=== PATIENT | male | born 1990 | race Caucasian/White ===

== ENCOUNTER 2017-11-21 08:50 | Inpatient (IN) | payer OTHER ==
[~2017-11-21] VITALS: Ht 180.3 cm; Wt 102.3 kg
[~2017-11-21 08:50] MED LIST: IBUP-1986 PO
[2017-11-21] MEDS ORDERED: HYDROcodone/acetaminophen 10/325mg tab PO ONE (10:15)
[2017-11-21 10:20] LABS: BASOPHILS % (AUTO) 0.1 % (0-1); EOSINOPHILS % (AUTO) 0.1 % (0-6); HEMATOCRIT 46.7 % (42.0-52.0); HEMOGLOBIN 15.7 g/dl (14.0-17.9); LYMPHOCYTES % (AUTO) 7.5 % (21-51); MEAN CORPUSCULAR HEMOGLOBIN 28.9 PG (27.0-31.0); MEAN CORPUSCULAR HGB CONC 33.6 % (33.0-36.5); MEAN CORPUSCULAR VOLUME 85.9 FL (78-98); MEAN PLATELET VOLUME 8.8 FL (7.4-10.4); MONOCYTES # (AUTO) 0.6 X10'3 (0-0.9); NEUTROPHILS # (AUTO) 11.3 X10'3 (1.8-7.7); NEUTROPHILS % (AUTO) 87.3 % (42-75); PLATELET COUNT 207 X10'3 (140-440); RED BLOOD COUNT 5.43 X10'6 (4.70-6.10); RED CELL DISTRIBUTION WIDTH 12.1 % (11.5-14.5); WHITE BLOOD COUNT 12.9 X10'3 (4.5-11.0)
[2017-11-21 10:29] LABS: PARTIAL THROMBOPLASTIN TIME 30 SECONDS (22-32); PROTHROMBIN TIME 10.5 SECONDS (9.0-12.0)
[2017-11-21 10:33] LABS: ALANINE AMINOTRANSFERASE 60 U/L (12-78); ALBUMIN 3.3 G/DL (3.4-5.0); ALBUMIN/GLOBULIN RATIO 0.7 (1.1-1.5); ALKALINE PHOSPHATASE 65 IU/L (46-116); ANION GAP 11 (8-16); ASPARTATE AMINO TRANSFERASE 30 U/L (10-37); BILIRUBIN,TOTAL 0.7 MG/DL (0.1-1.0); BLOOD UREA NITROGEN 12 MG/DL (7-18); BUN/CREATININE RATIO 13.3 (5.4-32.0); CALCIUM 9.2 MG/DL (8.5-10.1); CHLORIDE 100 MMOL/L (99-107); GLUCOSE 103 MG/DL (70-104); SODIUM 135 MMOL/L (135-145); TOTAL CARBON DIOXIDE 24.1 MMOL/L (24-32); TOTAL PROTEIN 7.9 G/DL (6.4-8.2); eGFR > 90 ML/MIN
[2017-11-21] MEDS ORDERED: normal saline 1000ML IV soln IV ONE (10:45)
[2017-11-21] MEDS ORDERED: CefTRIAXone 2gm/NS 100ml IVPB 100 ML IV ONE (10:45)
[2017-11-21] MEDS ORDERED: vancomycin/NS 1 GM ADD-VANTAGE 250 ML X 1 DOSE IV ONE (10:50)
[2017-11-21] MEDS ORDERED: mag hydrox/Alum hydrox/simeth 30ml oral suspension PO PRN (11:15)
[2017-11-21] MEDS ORDERED: acetaminophen 325mg tablet PO PRN ×2 (11:15)
[2017-11-21] MEDS ORDERED: ondansetron/PF 4mg/2ml inj IV PRN (11:15)
[2017-11-21] MEDS ORDERED: magnesium Cl slow-release 64mg tablet PO PRN (11:15)
[2017-11-21] MEDS ORDERED: potassium Cl 20 mEq SR tablet PO PRN ×2 (11:15)
[2017-11-21] MEDS ORDERED: magnesium 4gm in 100ml NS 100 ML IV PRN (11:15)
[2017-11-21] MEDS ORDERED: HYDROcodone/acetaminophen 5mg/325mg tablet PO PRN (11:15)
[2017-11-21] MEDS ORDERED: magnesium hydroxide 30ml (MOM) UD suspension PO PRN (11:15)
[2017-11-21] MEDS ORDERED: magnesium 2GM in 50ml NS 50 ML IV PRN (11:15)
[2017-11-21] MEDS ORDERED: potassium Cl 40MEQ/NS 500ml 500 ML IV PRN ×2 (11:15)
[2017-11-21 13:35] VITALS: BP 143/68
[2017-11-21] MEDS ORDERED: pneumococcal 23-VAL P-sac vacc 25 mcg/0.5ml vial IMVAC ONE (13:45)
[2017-11-21 19:00] VITALS: BP 121/65
[2017-11-21] MEDS ORDERED: temazepam 15mg capsule PO PRN (21:00)
[2017-11-21 23:30] VITALS: BP 131/81
[2017-11-22] MEDS: HYDROcodone/acetaminophen 10/325mg tab PO PRN ×2 (04:56→12:00)
[2017-11-22 05:25] LABS: BASOPHILS % (AUTO) 0.5 % (0-1); EOSINOPHILS # (AUTO) 0.1 X10'3 (0-0.9); EOSINOPHILS % (AUTO) 1.1 % (0-6); HEMATOCRIT 45.3 % (42.0-52.0); HEMOGLOBIN 15.7 g/dl (14.0-17.9); LYMPHOCYTES # (AUTO) 2.1 X10'3 (1.1-4.8); LYMPHOCYTES % (AUTO) 21.4 % (21-51); MEAN CORPUSCULAR HEMOGLOBIN 29.6 PG (27.0-31.0); MEAN CORPUSCULAR HGB CONC 34.7 % (33.0-36.5); MEAN CORPUSCULAR VOLUME 85.4 FL (78-98); MEAN PLATELET VOLUME 9.2 FL (7.4-10.4); MONOCYTES # (AUTO) 0.7 X10'3 (0-0.9); MONOCYTES % (AUTO) 7.1 % (2-12); NEUTROPHILS # (AUTO) 6.8 X10'3 (1.8-7.7); NEUTROPHILS % (AUTO) 69.9 % (42-75); PLATELET COUNT 200 X10'3 (140-440); RED BLOOD COUNT 5.31 X10'6 (4.70-6.10); RED CELL DISTRIBUTION WIDTH 11.4 % (11.5-14.5); WHITE BLOOD COUNT 9.7 X10'3 (4.5-11.0)
[2017-11-22 05:41] LABS: ALANINE AMINOTRANSFERASE 47 U/L (12-78); ALBUMIN 2.9 G/DL (3.4-5.0); ALBUMIN/GLOBULIN RATIO 0.6 (1.1-1.5); ALKALINE PHOSPHATASE 68 IU/L (46-116); ANION GAP 9 (8-16); ASPARTATE AMINO TRANSFERASE 26 U/L (10-37); BILIRUBIN,TOTAL 0.3 MG/DL (0.1-1.0); BLOOD UREA NITROGEN 12 MG/DL (7-18); BUN/CREATININE RATIO 13.3 (5.4-32.0); CALCIUM 8.9 MG/DL (8.5-10.1); CHLORIDE 102 MMOL/L (99-107); GLUCOSE 103 MG/DL (70-104); SODIUM 137 MMOL/L (135-145); TOTAL CARBON DIOXIDE 25.6 MMOL/L (24-32); TOTAL PROTEIN 7.5 G/DL (6.4-8.2); eGFR > 90 ML/MIN
[2017-11-22 07:35] VITALS: BP 117/84
[2017-11-22] MEDS ORDERED: K and/or MAG REPLACEMENT MC SCH (08:00)
[2017-11-22] MEDS ORDERED: enoxaparin 40mg/0.4ml syringe SUBCUT SCH (08:00)
[2017-11-22] MEDS ORDERED: VANCOMYCIN LEVEL IV ONE (11:30)
[2017-11-22] MEDS ORDERED: MESSAGE TO PHARMACY IV ONE (11:30)
[2017-11-22] MEDS ORDERED: AMOX-580 PO (11:33)
[2017-11-22] MEDS ORDERED: NEOM1PAC2 TP (11:33)
[2017-11-22 11:42] VITALS: BP 121/69
[2017-11-22 11:46] VITALS: BP 146/75
[2017-11-23] MEDS ORDERED: VANCOMYCIN LEVEL IV ONE (03:30)
== END 2017-11-22 14:35 | disposition home or self-care (01) | DRG 603 ==
LOC: ER 08:51 → ED HOLD 10:54 → EDBEDREQ 12:16 → SUR 3N 13:11
PROVIDERS: ADMIT Internal Medicine; ATTEND Internal Medicine
DX: L03.114 Cellulitis of left upper limb (principal); F12.90 Cannabis use, unspecified, uncomplicated; J30.2 Other seasonal allergic rhinitis; Z86.14 Personal history of Methicillin resistant Staphylococcus aureus infection; Z79.899 Other long term (current) drug therapy
CPT/HCPCS: 36415; 71046; 73060; 80053; 80202; 83605; 83735; 85025; 85610; 85730; 87040; 87070; 90732; 99285; A6212; J0696; J3370; J7030

== ENCOUNTER 2018-02-20 15:21 | Emergency (ER) | payer OTHER ==
[~2018-02-20] VITALS: Ht 177.8 cm; Wt 100.8 kg
[~2018-02-20 15:21] MED LIST changes: -IBUP-1986 PO; +NEOM1PAC2 TP
[2018-02-20 15:32] VITALS: BP 145/39
[2018-02-20 16:23] LABS: BASOPHILS % (AUTO) 0.2 % (0-1); EOSINOPHILS # (AUTO) 0.2 X10'3 (0-0.9); EOSINOPHILS % (AUTO) 2.3 % (0-6); HEMATOCRIT 50.8 % (42.0-52.0); HEMOGLOBIN 17.5 g/dl (14.0-17.9); LYMPHOCYTES # (AUTO) 2.4 X10'3 (1.1-4.8); LYMPHOCYTES % (AUTO) 21.7 % (21-51); MEAN CORPUSCULAR HEMOGLOBIN 29.7 PG (27.0-31.0); MEAN CORPUSCULAR HGB CONC 34.4 % (33.0-36.5); MEAN CORPUSCULAR VOLUME 86.1 FL (78-98); MEAN PLATELET VOLUME 9.1 FL (7.4-10.4); MONOCYTES # (AUTO) 0.5 X10'3 (0-0.9); MONOCYTES % (AUTO) 4.4 % (2-12); NEUTROPHILS # (AUTO) 7.7 X10'3 (1.8-7.7); NEUTROPHILS % (AUTO) 71.4 % (42-75); PLATELET COUNT 229 X10'3 (140-440); RED BLOOD COUNT 5.89 X10'6 (4.70-6.10); RED CELL DISTRIBUTION WIDTH 12.9 % (11.5-14.5); WHITE BLOOD COUNT 10.9 X10'3 (4.5-11.0)
[2018-02-20 16:32] LABS: CLARITY,URINE CLEAR (Clear); COLOR,URINE YELLOW (Yellow); GLUCOSE, URINE NEGATIVE (Neg); KETONES,URINE TRACE mg/dl (Neg); LEUKOCYTE ESTERASE ,URINE NEGATIVE (Neg); NITRITES, URINE NEGATIVE (Neg); OCCULT BLOOD,URINE NEGATIVE (Neg); PH,URINE 6.5 (4.8-8.0); PROTEIN,URINE NEGATIVE (Neg)
[2018-02-20 16:33] LABS: UA COLLECTION TYPE CLN CATCH MIDSTREAM
[2018-02-20 16:36] LABS: ALANINE AMINOTRANSFERASE 65 U/L (12-78); ALBUMIN 4.2 G/DL (3.4-5.0); ALBUMIN/GLOBULIN RATIO 1.2 (1.1-1.5); ALKALINE PHOSPHATASE 65 IU/L (46-116); AMYLASE 69 U/L (25-115); ANION GAP 9 (8-16); ASPARTATE AMINO TRANSFERASE 33 U/L (10-37); BILIRUBIN,TOTAL 0.5 MG/DL (0.1-1.0); BLOOD UREA NITROGEN 15 MG/DL (7-18); BUN/CREATININE RATIO 15.8 (5.4-32.0); CALCIUM 9.1 MG/DL (8.5-10.1); CHLORIDE 105 MMOL/L (99-107); CREATININE 0.95 MG/DL (0.60-1.10); GLUCOSE 103 MG/DL (70-104); LIPASE 85 U/L (73-393); POTASSIUM 4.1 MMOL/L (3.5-5.1); SODIUM 141 MMOL/L (135-145); TOTAL CARBON DIOXIDE 26.7 MMOL/L (24-32); TOTAL PROTEIN 7.8 G/DL (6.4-8.2); eGFR > 90 ML/MIN
[2018-02-20 16:37] LABS: PROTHROMBIN TIME 10.3 SECONDS (9.0-12.0)
== END 2018-02-20 21:10 | disposition left against medical advice (07) ==
LOC: ER 15:22
DX: R10.9 Unspecified abdominal pain (principal); Z53.21 Procedure and treatment not carried out due to patient leaving prior to being seen by health care provider
CPT/HCPCS: 36415; 80053; 81003; 82150; 83690; 85025; 85610; 99281

== ENCOUNTER 2019-04-20 06:07 | Emergency (ER) | payer SELFPAY ==
[~2019-04-20] VITALS: Ht 177.8 cm; Wt 108.0 kg
--- NOTE | 2019-04-20 06:32 | NUR ---
AMBULATORY TO ER #6 WITH C/O COUGH, CONGESTION, HOARSE VOICE, ONGOING FOR THE PAST MONTH. STATES HX BRONCHITIS. C/O CHILLS AND FEVER THIS MORNING. COUGHING UP THICK, YELLOW PHLEGM.
[2019-04-20] MEDS ORDERED: benzonatate 100mg capsule PO ONE (06:55)
[2019-04-20] MEDS ORDERED: normal saline 1000ML IV soln IVB ONE (06:55)
[2019-04-20] MEDS ORDERED: ondansetron/PF 4mg/2ml inj IV ONE (06:55)
[2019-04-20] MEDS ORDERED: acetaminophen 325mg tablet PO ONE (07:40)
[2019-04-20 07:51] LABS: ALANINE AMINOTRANSFERASE 54 U/L (12-78); ALBUMIN 3.6 G/DL (3.4-5.0); ALBUMIN/GLOBULIN RATIO 0.9 (1.1-1.5); ALKALINE PHOSPHATASE 62 IU/L (46-116); ANION GAP 8 (8-16); ASPARTATE AMINO TRANSFERASE 28 U/L (10-37); BILIRUBIN,TOTAL 0.4 MG/DL (0.1-1.0); BLOOD UREA NITROGEN 21 MG/DL (7-18); BUN/CREATININE RATIO 23.6 (5.4-32.0); CALCIUM 8.9 MG/DL (8.5-10.1); CHLORIDE 105 MMOL/L (99-107); CREATININE 0.89 MG/DL (0.60-1.10); GLUCOSE 111 MG/DL (70-104); POTASSIUM 4.1 MMOL/L (3.5-5.1); SODIUM 138 MMOL/L (135-145); TOTAL PROTEIN 7.8 G/DL (6.4-8.2); eGFR > 90 ML/MIN
[2019-04-20 08:03] LABS: BASOPHILS % (AUTO) 0.3 % (0-1); EOSINOPHILS # (AUTO) 0.1 X10'3 (0-0.9); EOSINOPHILS % (AUTO) 0.7 % (0-6); HEMATOCRIT 45.1 % (42.0-52.0); HEMOGLOBIN 15.9 g/dl (14.0-17.9); LYMPHOCYTES # (AUTO) 1.4 X10'3 (1.1-4.8); LYMPHOCYTES % (AUTO) 9.9 % (21-51); MEAN CORPUSCULAR HEMOGLOBIN 29.7 PG (27.0-31.0); MEAN CORPUSCULAR HGB CONC 35.2 g/dL (33.0-36.5); MEAN CORPUSCULAR VOLUME 84.2 FL (78-98); MONOCYTES # (AUTO) 0.8 X10'3 (0-0.9); MONOCYTES % (AUTO) 5.7 % (2-12); NEUTROPHILS # (AUTO) 11.7 X10'3 (1.8-7.7); NEUTROPHILS % (AUTO) 83.4 % (42-75); PLATELET COUNT 217 X10'3 (140-440); RED BLOOD COUNT 5.35 X10'6 (4.70-6.10); RED CELL DISTRIBUTION WIDTH 12.4 % (11.5-14.5)
[2019-04-20] MEDS ORDERED: GUAI473S11 PO (08:46)
[2019-04-20] MEDS ORDERED: BENZ-16 PO (08:46)
[2019-04-20 09:03] VITALS: BP 120/57
== END 2019-04-20 09:04 | disposition home or self-care (01) ==
LOC: ER 06:07
DX: R05 Cough (principal); R53.81 Other malaise; R42 Dizziness and giddiness; R50.9 Fever, unspecified; R09.89 Other specified symptoms and signs involving the circulatory and respiratory systems; M25.519 Pain in unspecified shoulder; J45.909 Unspecified asthma, uncomplicated; F12.90 Cannabis use, unspecified, uncomplicated; Z86.14 Personal history of Methicillin resistant Staphylococcus aureus infection; Z87.891 Personal history of nicotine dependence; Z79.899 Other long term (current) drug therapy
CPT/HCPCS: 36415; 71046; 80053; 85025; 87081; 87880; 96361; 96374; 99284; J2405; J7030

== ENCOUNTER 2021-05-01 21:43 | Emergency (ER) | payer OTHER ==
[~2021-05-01] VITALS: Ht 177.8 cm; Wt 113.6 kg
[2021-05-01 23:56] VITALS: BP 124/79
[2021-05-02] MEDS ORDERED: ibuprofen tablet 400 MG TABLET PO ONE (00:50)
[2021-05-02] MEDS ORDERED: acetaminophen 325mg tablet PO ONE (00:50)
[2021-05-02] MEDS ORDERED: IBUP-1986 PO (00:51)
--- NOTE | 2021-05-02 01:06 | NUR ---
CARLOS ALBERTO WRAPPED AND CRUTCHES PROVIDED
== END 2021-05-02 01:18 | disposition home or self-care (01) ==
LOC: ER 21:43
DX: M25.562 Pain in left knee (principal); J45.909 Unspecified asthma, uncomplicated; F12.90 Cannabis use, unspecified, uncomplicated; Z86.14 Personal history of Methicillin resistant Staphylococcus aureus infection; Z98.890 Other specified postprocedural states; Z79.2 Long term (current) use of antibiotics
CPT/HCPCS: 99283